=== PATIENT | female | born 1970 | race Asian ===

== ENCOUNTER 2020-07-10 17:56 | Emergency (ER) | payer OTHER ==
[~2020-07-10] VITALS: Ht 165.1 cm; Wt 54.4 kg
[2020-07-10 22:14] VITALS: BP 120/76
== END 2020-07-10 22:14 | disposition home or self-care (01) ==
LOC: ED 17:56
DX: S62.635B Displaced fracture of distal phalanx of left ring finger, initial encounter for open fracture (principal); W54.0XXA Bitten by dog, initial encounter; Y93.89 Activity, other specified; Y92.89 Other specified places as the place of occurrence of the external cause; Y99.8 Other external cause status
CPT/HCPCS: J1885; J2001